=== PATIENT | male | born 1990 | race American Indian/Alaskan Native ===

== ENCOUNTER 2021-04-15 17:39 | Emergency (ER) | payer SELFPAY ==
[2021-04-15 18:26] VITALS: BP 144/91
--- NOTE | 2021-04-15 19:46 | Emergency Department Report ---
HPI - General Chief Complaint: Dental/Oral Time Seen by Provider: 04/15/21 19:28 - HPI HPI: MSE The patient is a 31-year-old male present with a chief complaint of dental pain. Patient states he developed pain in his left upper tooth yesterday and then swelling to the left face. Patient denies history of fever. Patient denies direct trauma. Patient states he did break his tooth several years ago. Patient states he has not yet seen a dentist ED Past Medical Hx - Past Medical History Previous Medical History?: No - Surgical History Past Surgical History?: No Additional Surgical History: Right knee surgery, scrotal surgery - Family History Family history: no significant - Social History Smoking Status: Never Smoker Substance Use Type: Marijuana - Medications Home Medications: Home Medications Medication Instructions Recorded Confirmed Last Taken Type Amoxicillin/Potassium Clav 1 each PO BID #20 04/15/21 Unknown Rx [Augmentin 875-125 Tablet] HYDROcodone/APAP 5-325 [[place] 1 - 2 each PO Q6HR PRN #14 tablet 04/15/21 Unknown Rx 5/325] Ibuprofen [Motrin 800 MG tab] 800 mg PO Q8HR PRN #20 tablet 04/15/21 Unknown Rx ED Review of Systems ROS: Stated complaint: TOOTHACHE PAIN Other details as noted in HPI Constitutional: denies: fever Eyes: denies: eye pain ENT: dental pain Respiratory: no symptoms reported Cardiovascular: denies: chest pain Endocrine: no symptoms reported Physical Exam - Physical Exam Vital Signs: Vital Signs 04/15/21 04/15/21 17:43 18:23 Temperature 99.5 F Pulse Rate 66 68 Respiratory 16 16 Rate Blood Pressure 129/75 Blood Pressure 144/91 [Left] O2 Sat by Pulse 100 100 Oximetry Physical Exam: GENERAL: The patient is well-developed well-nourished male sitting in chair not appearing to be in acute distress HEENT: Normocephalic. Atraumatic. Extraocular motions are intact. Patient complains of pain above tooth #12. There is no gingival erythema. Tooth #14 is broken anteriorly. There is left maxillary fullness but no overlying erythema NECK: Supple. Trachea midline CHEST/LUNGS: There is no respiratory distress noted. SKIN: There is no rash. There is no edema. There is no diaphoresis. NEURO: The patient is awake, alert, and oriented. The patient is cooperative. The patient has no focal neurologic deficits. The patient has normal speech MUSCULOSKELETAL: There is no evidence of acute injury. ED Course Vital Signs 04/15/21 04/15/21 17:43 18:23 Temperature 99.5 F Pulse Rate 66 68 Respiratory 16 16 Rate Blood Pressure 129/75 Blood Pressure 144/91 [Left] O2 Sat by Pulse 100 100 Oximetry ED Medical Decision Making - Differential Diagnosis Dental abscess Critical care attestation.: If time is entered above; I have spent that time in minutes in the direct care of this critically ill patient, excluding procedure time. ED Disposition Clinical Impression: Dental abscess Disposition: HOME / SELF CARE / HOMELESS Is pt being admited?: No Does the pt Need Aspirin: No Condition: Stable Instructions: Dental Abscess Additional Instructions: Return to the emergency department should you develop worsening symptoms, inab ility to tolerate food or liquids, high fever or any other concerns Prescriptions: Amoxicillin/Potassium Clav [Augmentin 875-125 Tablet] 1 each PO BID #20 Ibuprofen [Motrin 800 MG tab] 800 mg PO Q8HR PRN #20 tablet PRN Reason: Pain, Moderate (4-6) HYDROcodone/APAP 5-325 [[place] 5/325] 1 - 2 each PO Q6HR PRN #14 tablet PRN Reason: Pain Referrals: [facility] [Outside] - 7-10 days Time of Disposition: 19:48
== END 2021-04-15 21:29 | disposition home or self-care (01) ==
LOC: ED 17:39
DX: K04.7 Periapical abscess without sinus (principal); F12.90 Cannabis use, unspecified, uncomplicated
CPT/HCPCS: 99282